=== PATIENT | male | born 1940 | race Hispanic/Latino ===

== ENCOUNTER 2017-01-25 11:03 | Emergency (ER) | payer MEDICARE ==
[~2017-01-25] VITALS: Ht 167.6 cm; Wt 77.3 kg
[2017-01-25 11:14] VITALS: BP 118/73; PULSE 56; RESP 18; O2SAT 97
--- NOTE | 2017-01-25 11:37 | ED.REPORT ---
HPI-Abd Pain M 40 and Over Date of Service Jan 25, 2017 ED Provider: Celso Ferrer DO The patient is a 76 year old male who presents to the ED due to abdominal pain onset this morning. He drank a cup of hot coffee and experienced abdominal pain. Then he drank a small cup of salt water which made him vomit. He denies fever. He denies any other medical problems. Pt has had an appendectomy. Nursing Notes Stated Complaint: ABDOMINAL PAIN/COLD SYMTPOMS Chief Complaint: Male Abdominal Pain Nursing Notes Reviewed: Yes Allergies: Coded Allergies: No Known Allergies (Verified , 10/27/06) Scheduled Amoxicillin/Clav K 875-125 mg (Augmentin 875-125 mg) 1 Each Tablet 1 TABLET PO BID General Time Seen by MD: 11:30 Chief Complaint Abdominal pain Hx Obtained From: Patient Arrived By: Walk-in Sudden in Onset?: Yes Onset Occurred: Yesterday Symptom Duration: Since onset Severity: Current: Mild Recent Healthcare: No recent doctor visit, No recent hospitalization Similar Sx Previous: No Past Medical History Past Medical History denies Past Surgical History Reports: Appendectomy Smoking History Current Some Day Smoker Social History Alcohol Use: Denies alcohol use Other Social History: Good social support, Local resident Ambulatory Status Independent Review of Systems Constitutional: Denies: Fever GI: Reports: Abdominal pain, Vomiting Complete sys rev & neg: except as marked. Physical Exam Initial Vital Signs Vital Signs (First) Date Time Temp Pulse Resp B/P Pulse Ox O2 Delivery O2 Flow Rate FiO2 01/25/17 11:14 36.7 56 18 118/73 97 01/25/17 14:57 Room Air Initial VS: Reviewed Head / Eyes: Atraumatic, Normocephalic, PERRL ENT: Mucous membranes moist, Conjunctiva normal Neck: Supple, Non-tender Extremities: Vascular intact, Neuro intact, No swelling, No tenderness Skin: Warm, Dry General/Constitutional: Awake, Alert, Cooperative Respiratory / Chest: Atraumatic, Breath sounds NL, Breath sounds = bilat, No respiratory distress Cardiovascular: Heart rate NL, Regular rhythm, Heart sounds NL Abdomen: Atraumatic, Soft, Non-tender Back: Atraumatic, Inspection NL, Full range of motion Interpretation & Diagnostics Lab Results Interpretation Result Diagram: 01/25/17 1220 01/25/17 1220 Test 01/25/17 12:20 01/25/17 12:47 White Blood Count 5.5th/mm3 (3.8-10.1) Red Blood Count 4.79mil/mm3 (4.40-5.80) Hemoglobin 14.1g/dL (13.8-17.2) Hematocrit 41.8% (41.0-50.0) Mean Corpuscular Volume 87.3fL (81-100) Mean Corpuscular Hemoglobin 29.4pg (27.0-35.0) Mean Corpuscular Hemoglobin Concent 33.7% (32.0-37.0) Red Cell Distribution Width 13.1% (12.3-15.4) Platelet Count 260bil/L (150-400) Neutrophils (%) (Auto) 67.1% (40-74) Lymphocytes (%) (Auto) 22.0% (14-46) Monocytes (%) (Auto) 8.9% (4-12) Eosinophils (%) (Auto) 1.6% (0-5) Basophils (%) (Auto) 0.2% (0-3) Sodium Level 137mEq/L (134-144) Potassium Level 3.7mEq/L (3.5-5.2) Chloride Level 100mEq/L (97-108) Carbon Dioxide Level 25mmol/L (18-29) Blood Urea Nitrogen 8mg/dL (8-27) Creatinine 0.73mg/dL (0.76-1.27) Estimat Glomerular Filtration Rate 111mL/min (>59) Glucose Level 103mg/dL (60-99) Calcium Level 9.0mg/dL (8.5-10.1) Magnesium Level 2.0mg/dL (1.6-2.6) Total Bilirubin 0.5mg/dL (0.0-1.2) Aspartate Amino Transf (AST/SGOT) 12U/L (0-50) Alanine Aminotransferase (ALT/SGPT) 8U/L (0-44) Alkaline Phosphatase 75U/L (25-160) Total Protein 6.8g/dL (6.4-8.4) Albumin 3.9g/dL (3.4-5.0) Lipase 20U/L (13-60) Hold Virgen Top Tube Received (Received) Urine Color Yellow (YELLOW) Urine Appearance Clear (CLEAR,HAZY) Urine pH 6.5 (5.0-8.0) Urine Specific [place] 1.005 (1.003-1.035) Urine Protein Negativemg/dL (NEG,TRACE) Urine Glucose (UA) Negativemg/dL (NEGATIVE) Urine Ketones Negativemg/dL (NEGATIVE) Urine Occult Blood Negative (NEGATIVE) Urine Nitrite Negative (NEGATIVE) Urine Bilirubin Negative (NEGATIVE) Urine Urobilinogen Normalmg/dL (NORMAL) Urine Leukocyte Esterase Negative (NEGATIVE) Urine RBC 0-2/hpf (0-2) Urine WBC 0-5/hpf (0-5) Urine Epithelial Cells Occasional/hpf (NONE-MOD) Urine Crystals None seen (NONE SEEN) Urine Bacteria None/hpf (NONE-FEW) Urine Hyaline Casts None/lpf (NONE) Urine Granular Casts None seen (NONE SEEN) Urine Waxy Casts None seen (NONE SEEN) Urine Red Blood Cell Casts None seen (NONE SEEN) Urine White Blood Cell Casts None seen (NONE SEEN) Urine Mucus None seen (None Seen) Urine Trichomonas None seen (NONE SEEN) Urine Yeast None (NONE SEEN) Urinalysis Comment None Urine Culture Reflexed Not indicated CT Abd / Pelvis Interpretation IMPRESSION: 1. Mild segmental colitis in the sigmoid colon is nonspecific but likely related to diverticulitis. No diverticular abscess or macroscopic free air. 2. Mild concentric bladder wall thickening compatible with a nonspecific cystitis. Recommend correlation with urinalysis. Dictated by: Yossi Claire M.D. on 01/25/2017 at 14:41 Approved by: Yossi Claire M.D. on 01/25/2017 at 14:48 Study type: Abdominal CT no contrast Interpretation / Wet Read by: Interpret - Radiologist Re-Eval/Medical Decision Med Decision/Clinical Course Findings of mild diverticulitis with reassuring vital signs and reassuring physical exam, will start on Augmentin. Return and follow-up precautions given Counseled Regarding: Diagnosis, Lab results, Need for follow-up, When/why to return to ED Discharge & Departure Primary Impression: Diverticulitis Diverticulitis site: large intestine Diverticulitis bleeding: without bleeding Diverticulitis complication: without perforation or abscess Qualified Code: K57.32 - Diverticulitis of large intestine without perforation or abscess without bleeding Disposition: Home Vital Signs - All Vital Signs Date Time Temp Pulse Resp B/P Pulse Ox O2 Delivery O2 Flow Rate FiO2 01/25/17 14:57 57 12 144/76 97 Room Air 01/25/17 11:14 36.7 56 18 118/73 97 )( All Prior VS Reviewed: Yes Condition: Stable Additional Instructions: Your CT scan shows some slight inflammation around your colon. Follow up with your primary care physician as needed. Return to the Emergency Department for any new or worsening symptoms. Referrals: Jaskaran Khalil MD (PCP) Scribe Attestation Portion of this note were transcribed by Loren Gil. I, Dr. Ferrer, personally performed the history, physical exam, and medical decision-making: I reviewed and confirmed the accuracy for the information in the transcribed note. Signed by: nic Calix, 01/25/17 1500 copies to: Jaskaran Khalil MD, Timothy S DO Jan 25, 2017 11:37 Loren Gil Jan 25, 2017 11:47
[2017-01-25] MEDS ORDERED: 0.9% Sodium Chloride 1,000 ML IV ONE (11:43)
[2017-01-25 12:52] LABS: BASOPHILS % (AUTO) 0.2 % (0-3); EOSINOPHILS % (AUTO) 1.6 % (0-5); MONOCYTES % (AUTO) 8.9 % (4-12); Mean Corpuscular Hemoglobin 29.4 pg (27.0-35.0); Mean Corpuscular Volume 87.3 fL (81-100); NEUTROPHILS % (AUTO) 67.1 % (40-74); Platelet Count 260 bil/L (150-400)
[2017-01-25 13:18] LABS: APPEARANCE,URINE CLEAR (CLEAR,HAZY); COLOR,URINE YELLOW (YELLOW); OCCULT BLOOD,URINE NEGATIVE (NEGATIVE); PH,URINE 6.5 (5.0-8.0); UROBILINOGEN,URINE NORMAL (NORMAL)
--- NOTE | 2017-01-25 14:49 | DRSVH ---
PROCEDURE: CT ABDOMEN AND PELVIS WITH CONTRAST ([id number]) INDICATIONS: Lower abdominal pain. TECHNIQUE: After the administration of oral and intravenous contrast, 5 mm thick sections acquired from the diap hragms to the symphysis. 5 mm thick coronal and sagittal reformats were performed. For radiation do se reduction, the following was used: automated exposure control, adjustment of mA and/or kV accordi ng to patient size. COMPARISON: None. FINDINGS: Image quality: There is mild motion artifact. ABDOMEN: Lung bases: Mild dependent atelectasis is present as well as a stable small calcified granuloma in th e left lower lobe. There is a small hiatal hernia. Heart size is normal. Solid organs: There is diffuse hypoattenuation of the liver consistent with fatty infiltration. The spleen is normal in size. Gallbladder appears within normal limits without calcified gallstones. Bi liary system is non-dilated. Pancreas enhances normally. No adrenal nodules. Kidneys are normal in size and enhancement, without hydronephrosis. Peritoneum and bowel: Stomach and small bowel loops are normal in caliber and wall thickness. There is colonic diverticulosis. There is mild segmental wall thickening in the sigmoid colon with mild p ericolonic fat stranding. Although a definite inflamed colonic diverticulum is not discretely identi fied, the findings likely reflect sequelae of diverticulitis. No diverticular abscess or macroscopic free air. No free fluid or air. Nodes and vessels: No retroperitoneal or mesenteric adenopathy. Aorta and inferior vena cava are no rmal in caliber. Miscellaneous: No ventral hernias. PELVIS: Genitourinary: There is mild concentric bladder wall thickening. Miscellaneous: There is a small fat containing left inguinal hernia. No inguinal adenopathy. Bones: No suspicious bony lesions. No vertebral body compression fractures. There are multilevel d egenerative changes in the visualized lower thoracic and lumbar spine with partial fusion demonstrate d at multiple levels in the lower thoracic spine. IMPRESSION: 1. Mild segmental colitis in the sigmoid colon is nonspecific but likely related to diverticulitis. No diverticular abscess or macroscopic free air. 2. Mild concentric bladder wall thickening compatible with a nonspecific cystitis. Recommend correl ation with urinalysis. Dictated by: Yossi Claire M.D. on 01/25/2017 at 14:41 Approved by: Yossi Claire M.D. on 01/25/2017 at 14:48
[2017-01-25 14:57] VITALS: BP 144/76; PULSE 57; RESP 12; O2SAT 97
[2017-01-25] MEDS ORDERED: AMOX-366 PO (15:14)
[2017-01-25 15:47] VITALS: BP 144/76; PULSE 57; RESP 12; O2SAT 97
== END 2017-01-25 15:47 | disposition home or self-care (01) ==
LOC: SED 11:03
DX: K57.32 Diverticulitis of large intestine without perforation or abscess without bleeding (principal); F17.200 Nicotine dependence, unspecified, uncomplicated
CPT/HCPCS: 74177; 80053; 81000; 83690; 83735; 85025; 96360; 99285; J7030; Q9967